=== PATIENT | female | born 1990 | race Two or more races ===

== ENCOUNTER 2025-03-03 21:07 | Emergency (ER) | payer OTHER ==
[~2025-03-03] VITALS: Ht 162.6 cm; Wt 61.2 kg
[2025-03-03 21:41] LABS: PLATELET COUNT (AUTO) 315 K/uL (150-450); RED BLOOD CELL COUNT(AUTO) 4.07 MIL/uL (4.0-5.2); RED CELL DISTRIBUTION WIDTH 13.3 % (11.5-15.0); WHITE BLOOD COUNT (AUTO) 8.6 K/uL (4.3-11.0)
[2025-03-03 21:50] LABS: CALCIUM, SERUM 9.1 mg/dL (8.5-10.1); CREATININE 0.6 mg/dL (0.6-1.3); SODIUM SERUM 138.0 mmol/L (136-145); UREA NITROGEN, BLOOD 12.0 mg/dL (7-18)
[2025-03-03 23:36] VITALS: BP 131/80; TEMP 86; O2SAT 98
[2025-03-05] MEDS ORDERED: MUPIROCIN OINT 2% 22 GM TUBE ONE (17:58)
== END 2025-03-03 23:36 | disposition home or self-care (01) ==
LOC: ER 21:12
DX: R51.9 Headache, unspecified (principal); R10.2 Pelvic and perineal pain
CPT/HCPCS: 36415; 70450-TC; 80048-TC; 84702-TC; 85025-TC